=== PATIENT | female | born 2000 | race Caucasian/White ===

== ENCOUNTER 2019-02-08 22:54 | Emergency (ER) | payer SELFPAY ==
[2019-02-08] MEDS ORDERED: 0.9 % SODIUM CHLORIDE 1,000 ML IV ONE (23:06)
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
[2019-02-09 00:57] VITALS: BP 109/85
[2019-02-09 06:12] LABS: APPEARANCE,URINE CLEAR (CLEAR); COLOR,URINE YELLOW (YELLOW)
[2019-02-09 06:13] LABS: OCCULT BLOOD,URINE 1+ (NEGATIVE)
[2019-02-09 06:43] LABS: BASOPHILS % 0.3 % (0.0-1.5); NEUTROPHILS # 4.1 # k/uL (1.4-7.7)
[2019-02-09 06:44] LABS: eGFR (Non-African) > 60
--- NOTE | 2019-02-10 11:37 | Diagnostic Imaging Report ---
[facility] [id number] [place] [facility] [id number] Patient Name: RONDA ALCALA Referring Physician: SYDNEY MCKENZIE Date of : 2000 Gender: F Date of Service: 02/08/2019 Exam Requested: CT BRAIN W/O CONTRAST CT BRAIN HISTORY: MENTAL STATUS CHANGES, POSSIBLE SEIZURE. TECHNIQUE: Scans through the brain were obtained without contrast. FINDINGS: Bone window settings demonstrate no calvarial abnormality. Paranasal sinuses and mastoid air cells included on the study are within normal limits. There is no evidence of intra-or extra axial mass lesion, midline shift, subdural hematoma, hemorrhage or focal CVA identified. Lateral ventricles and basilar cisterns are normal. IMPRESSION: Unremarkable unenhanced head CT. Note: Total DLP 679.11 milligray/cm AN
== END 2019-02-09 00:35 | disposition home or self-care (01) ==
LOC: ED 22:54
DX: R41.82 Altered mental status, unspecified (principal)
CPT/HCPCS: 70450; 80053; 80320; 81002; 81025; 85025; 96360; 99282; 99284; J7030; G0480; S1016